=== PATIENT | male | born 1985 | race Two or more races ===

== ENCOUNTER 2021-01-03 12:33 | Emergency (ER) | payer MEDICAID ==
[~2021-01-03] VITALS: Ht 175.3 cm; Wt 85.5 kg
--- NOTE | 2021-01-03 13:44 | NUR ---
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
--- NOTE | 2021-01-03 13:58 | NUR ---
PT AMBULATORY TO BR WITH UPRIGHT STEADY GAIT FOR URINE SAMPLE
--- NOTE | 2021-01-03 14:29 | NUR ---
PT RESTING ON GURNEY WATCHING TV. NADN/VSS. DENIES ANY PAIN, NO NEW COMPLAINTS. CALL LIGHT WITHIN REACH. NO NEEDS AT THIS TIME
[2021-01-03 14:42] LABS: MICROSCOPIC AUTO
[2021-01-03 15:19] LABS: BASOPHILS % (AUTO) 1 % (0-1); EOSINOPHILS % (AUTO) 1 % (1-7); LYMPHOCYTES % (AUTO) 25 % (22-44); MEAN CORPUSCULAR HEMOGLOBIN 33.4 pg (27.5-34.5); MEAN CORPUSCULAR HGB CONC 34.4 g/dL (33.2-36.2); MEAN PLATELET VOLUME 7.3 fL (7.4-10.4); MONOCYTES % (AUTO) 6 % (2-9); NEUTROPHILS % (AUTO) 67 % (42-75); PLATELET COUNT 254 x10^3/uL (130-400); RED BLOOD COUNT 4.64 x10^6/uL (4.38-5.82); RED CELL DISTRIBUTION WIDTH 12.2 % (9.4-14.8)
--- NOTE | 2021-01-03 15:25 | NUR ---
PT SITTING ON GURNEY CALMLY, WATCHING TV & ON PHONE. NADN/VSS. CALL LIGHT WITHIN REACH. NO NEEDS AT THIS TIME
[2021-01-03 15:30] LABS: ALANINE AMINOTRANSFERASE 90 U/L (12-78); ALBUMIN 4.1 g/dL (3.4-5.0); ANION GAP 2 mmol/L (5-15); CALCIUM 9.6 mg/dL (8.5-10.1); CHLORIDE 107 mmol/L (98-107); CREATININE 1.24 mg/dL (0.7-1.3)
[2021-01-03 15:31] LABS: ALKALINE PHOSPHATASE 51 U/L (45-117); BILIRUBIN,TOTAL 0.7 mg/dL (0.2-1.0); TOTAL PROTEIN 7.3 g/dL (6.4-8.2)
[2021-01-03 16:10] VITALS: BP 108/55
--- NOTE | 2021-01-03 16:16 | NUR ---
PT TO CT
--- NOTE | 2021-01-03 17:11 | NUR ---
Patient given discharge instructions and they have confirmed that they understand the instructions. Patient ambulatory with steady gait.
== END 2021-01-03 17:13 | disposition home or self-care (01) ==
LOC: EDBD 12:33 → ED 17:05
DX: R31.0 Gross hematuria (principal); N20.0 Calculus of kidney
CPT/HCPCS: 36415; 74176; 80053; 81001; 85025; 99284